=== PATIENT | male | born 1990 | race Two or more races ===

== ENCOUNTER 2024-09-14 19:45 | Emergency (ER) | payer OTHER ==
[~2024-09-14] VITALS: Ht 172.7 cm; Wt 80.7 kg
[2024-09-14 21:14] VITALS: BP 128/67; O2SAT 99
== END 2024-09-14 21:18 | disposition home or self-care (01) ==
LOC: ER 19:45
DX: T40.411A Poisoning by fentanyl or fentanyl analogs, accidental (unintentional), initial encounter (principal); F17.200 Nicotine dependence, unspecified, uncomplicated; Y92.89 Other specified places as the place of occurrence of the external cause
CPT/HCPCS: A4606; A4663